=== PATIENT | male | born 1985 | race African-American/Black ===

== ENCOUNTER 2017-01-28 23:08 | Emergency (ER) | payer OTHER ==
[~2017-01-28 23:08] MED LIST: KETOPROFEN PO
== END 2017-01-29 02:26 | disposition home or self-care (01) ==
LOC: CED 23:08
DX: B35.3 Tinea pedis (principal); Z88.2 Allergy status to sulfonamides; Z88.8 Allergy status to other drugs, medicaments and biological substances
CPT/HCPCS: 99282

== ENCOUNTER 2017-02-07 01:55 | Emergency (ER) | payer OTHER | END 2017-02-07 02:13 | disposition home or self-care (01) | LOC: CED 01:55 | DX: L97.529 Non-pressure chronic ulcer of other part of left foot with unspecified severity (principal); F17.200 Nicotine dependence, unspecified, uncomplicated; Z98.890 Other specified postprocedural states | CPT/HCPCS: 29540; 99283 ==